=== PATIENT | female | born 1995 | race Caucasian/White ===

== ENCOUNTER → 2016-11-01 | Outpatient (CLI) | payer OTHER ==
[2016-11-01 16:31] VITALS: BP 131/87
== END ==
LOC: MHUC 16:17
PROVIDERS: ATTEND Physician Assistant
DX: J01.00 Acute maxillary sinusitis, unspecified (principal)
CPT/HCPCS: 99213

== ENCOUNTER → 2016-11-29 | Outpatient (CLI) | payer OTHER ==
[2016-11-29 10:41] VITALS: BP 140/78
== END ==
LOC: MHUC 10:10
PROVIDERS: ATTEND Physician Assistant
DX: J02.0 Streptococcal pharyngitis (principal)
CPT/HCPCS: 87880; 99213